=== PATIENT | female | born 1990 | race Caucasian/White ===

== ENCOUNTER → 2020-01-20 | Outpatient (CLI) | payer MEDICAID | LOC: LAB 13:28 | DX: J02.9 Acute pharyngitis, unspecified (principal); Z20.828 Contact with and (suspected) exposure to other viral communicable diseases ==

== ENCOUNTER → 2020-03-27 | Outpatient (CLI) | payer MEDICAID | LOC: LAB 09:06 | DX: N91.2 Amenorrhea, unspecified (principal) ==

== ENCOUNTER 2020-05-03 07:19 | Emergency (ER) | payer MEDICAID ==
[2020-05-03] MEDS ORDERED: MULTI FOR HER1 EACH PO (07:28)
[2020-05-03 08:29] LABS: MEAN CELL VOLUME 91 fl (78-100); MEAN CORPUSCULAR HEMOGLOBIN 30 pg (27-31); MEAN CORPUSCULAR HGB CONC 33 g/dL (33-37); MEAN PLATELET VOLUME 9.1 fl (7.4-10.4); PLATELET COUNT 199 K/mm3 (130-400); RED BLOOD COUNT 4.39 M/mm3 (4.10-5.30); RED CELL DISTRIBUTION WIDTH 13.1 % (11.5-14.5); WHITE BLOOD COUNT 13.1 K/mm3 (4.8-10.8)
[2020-05-03 09:00] LABS: BAND 3 % (0-10); NEUTROPHILS 87 % (42-75)
[2020-05-03 09:01] LABS: URINE APPEARANCE CLOUDY; URINE BILIRUBIN NEGATIVE (NEGATIVE); URINE BLOOD 250 ery/uL (NEGATIVE); URINE COLOR YELLOW; URINE GLUCOSE NEGATIVE (NEGATIVE); URINE KETONE NEGATIVE (NEGATIVE); URINE LEUKOCYTE ESTERASE 2+ (NEGATIVE); URINE NITRATE POSITIVE (NEGATIVE); URINE PROTEIN(semi-quant) 2+ mg/dL (NEGATIVE); URINE UROBILINOGEN NORMAL (NORMAL)
[2020-05-03 09:01] LABS: LYMPHOCYTE 2 % (20-51); METAMYELOCYTE 1 % (0-0); MONOCYTE 6 % (3-10)
[2020-05-03 09:02] LABS: URINE WBC >50 /hpf (0-3)
[2020-05-03] MEDS ORDERED: CEFDINIR300 MG PO (09:08)
[2020-05-03 09:35] VITALS: BP 127/77
[2020-05-04] MEDS ORDERED: SEPTRA DS 8001 TAB PO (11:00)
== END 2020-05-03 09:35 | disposition home or self-care (01) ==
LOC: ED 07:19
PROVIDERS: Family Medicine
DX: N12 Tubulo-interstitial nephritis, not specified as acute or chronic (principal); Z20.822 Contact with and (suspected) exposure to COVID-19
CPT/HCPCS: J0696

== ENCOUNTER 2020-05-04 09:36 | Emergency (ER) | payer MEDICAID ==
[~2020-05-04 09:36] MED LIST: CEFDINIR300 MG PO; MULTI FOR HER1 EACH PO
[2020-05-04 10:08] LABS: EOS % 0.4 % (1.0-5.0); HEMATOCRIT 38.7 % (37.0-47.0); HEMOGLOBIN 12.4 g/dL (12.5-16.0); LYMPH# 1.7 (1.50-4.00); MEAN CELL VOLUME 91 fl (78-100); MEAN CORPUSCULAR HEMOGLOBIN 29 pg (27-31); MEAN CORPUSCULAR HGB CONC 32 g/dL (33-37); MEAN PLATELET VOLUME 9.4 fl (7.4-10.4); MONO # 1.1 (0.20-0.80); NEU # 6.7 (1.40-6.50); PLATELET COUNT 228 K/mm3 (130-400); RED BLOOD COUNT 4.24 M/mm3 (4.10-5.30); WHITE BLOOD COUNT 9.5 K/mm3 (4.8-10.8)
[2020-05-04 10:19] LABS: CALCIUM 9.5 mg/dL (8.3-10.5)
[2020-05-04 10:21] LABS: TOTAL PROTEIN 8.1 g/dL (6.4-8.3)
[2020-05-04 10:22] LABS: TOTAL BILIRUBIN 0.6 mg/dL (0.2-1.2)
[2020-05-04 10:40] LABS: URINE APPEARANCE CLOUDY; URINE BILIRUBIN NEGATIVE (NEGATIVE); URINE BLOOD 250 ery/uL (NEGATIVE); URINE COLOR YELLOW; URINE GLUCOSE NEGATIVE (NEGATIVE); URINE KETONE NEGATIVE (NEGATIVE); URINE LEUKOCYTE ESTERASE 1+ (NEGATIVE); URINE NITRATE NEGATIVE (NEGATIVE); URINE PROTEIN(semi-quant) 1+ mg/dL (NEGATIVE); URINE UROBILINOGEN NORMAL (NORMAL); URINE WBC 16-30 /hpf (0-3)
[2020-05-04] MEDS ORDERED: SEPTRA DS 8001 TAB PO (11:00)
[2020-05-04 11:40] VITALS: BP 112/68
== END 2020-05-04 11:40 | disposition home or self-care (01) ==
LOC: ED 09:36
PROVIDERS: Nurse Practitioner
DX: N12 Tubulo-interstitial nephritis, not specified as acute or chronic (principal)
CPT/HCPCS: J7030

== ENCOUNTER → 2020-06-18 | Outpatient (CLI) | payer MEDICAID ==
[~2020-06-18] MED LIST changes: +SEPTRA DS 8001 TAB PO
== END ==
LOC: LAB 09:15
DX: N91.2 Amenorrhea, unspecified (principal)

== ENCOUNTER → 2021-07-17 | Outpatient (CLI) | payer MEDICAID ==
[2021-07-17 19:01] LABS: BASO # 0.02 K/mm3 (0.02-0.10); EOS # 0.39 K/mm3 (0.04-0.40); EOS % 3.4 % (1.0-5.0); HEMATOCRIT 38.5 % (37.0-47.0); HEMOGLOBIN 12.8 g/dL (12.5-16.0); LYMPH# 1.63 K/mm3 (1.50-4.00); MEAN CELL VOLUME 92 fl (78-100); MEAN CORPUSCULAR HEMOGLOBIN 31 pg (27-31); MEAN CORPUSCULAR HGB CONC 33 g/dL (33-37); MEAN PLATELET VOLUME 8.9 fl (7.4-10.4); NEU # 8.66 K/mm3 (1.40-6.50); PLATELET COUNT 256 K/mm3 (130-400); RED BLOOD COUNT 4.17 M/mm3 (4.10-5.30); RED CELL DISTRIBUTION WIDTH 11.6 % (11.5-14.5); WHITE BLOOD COUNT 11.6 K/mm3 (4.8-10.8)
== END ==
LOC: LAB 18:43
PROVIDERS: Nurse Practitioner Family
DX: J02.9 Acute pharyngitis, unspecified (principal); R53.83 Other fatigue